=== PATIENT | male | born 1990 | race Hispanic/Latino ===

== ENCOUNTER 2018-02-26 09:53 | Emergency (ER) | payer SELFPAY ==
[2018-02-26] MEDS ORDERED: METHOCARBAMOL 500 MG TAB ONE (10:33)
[2018-02-26] MEDS ORDERED: predniSONE 20 MG TAB ONE (10:33)
[2018-02-26] MEDS ORDERED: KETOROLAC 30 MG/ML INJ ONE (10:34)
--- NOTE | 2018-02-26 11:19 | RAD REPORT ---
EXAM DESCRIPTION: RAD - Shoulder Right 2 View - 02/26/2018 11:13 am CLINICAL HISTORY: PAIN COMPARISON: CHEST PA AND LAT 2 VIEW dated 05/04/2007 FINDINGS: No acute fracture or dislocation is seen. No aggressive marrow lesion. IMPRESSION: No acute process seen.
--- NOTE | 2018-02-26 12:00 | ER ---
Nurse's Notes [facility] Name: Silvino Easton Jr Age: 28 yrs Sex: Male : 1990 Arrival Date: 02/26/2018 Time: 09:57 Bed 20 Private MD: None, None Diagnosis: Right shoulder pain, right AC joint pain, right rhomboid muscle pain Presentation: 02/26 10:05 Care prior to arrival: None. 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 Transition of care: patient was not received from another setting of care. Onset of symptoms was February 26, 2018. Risk Assessment: Do you want to hurt yourself or someone else? Patient reports no desire to harm self or others. Initial Sepsis Screen: Does the patient meet any 2 criteria? No. Patient's initial sepsis screen is negative. Does the patient have a suspected source of infection? No. Patient's initial sepsis screen is negative. 10:05 Method Of Arrival: Ambulatory sg 10:05 Acuity: GABBY 4 sg Historical: - Allergies: 10:05 No Known Allergies; sg - Home Meds: 10:16 None [Active]; iw - PMHx: 10:16 None; iw - PSHx: 10:05 None; sg - Immunization history:: Adult Immunizations not up to date. - Social history:: Smoking status: Patient/guardian denies using tobacco. - Ebola Screening: : Patient negative for fever greater than or equal to 101.5 degrees Fahrenheit, and additional compatible Ebola Virus Disease symptoms Patient denies exposure to infectious person Patient denies travel to an Ebola-affected area in the 21 days before illness onset No symptoms or risks identified at this time. Screenin:20 Abuse screen: Denies threats or abuse. Nutritional screening: No deficits noted. em Tuberculosis screening: No symptoms or risk factors identified. Fall Risk None identified. Assessment: 10:30 General: Appears in no apparent distress. comfortable, Behavior is calm, cooperative, em appropriate for age. Pain: Complains of pain in right arm and right trapezius Pain currently is 8 out of 10 on a pain scale. Neuro: Level of Consciousness is awake, alert, obeys commands, Oriented to person, place, time, situation. Cardiovascular: Capillary refill < 3 seconds Patient's skin is warm and dry. Respiratory: Airway is patent Respiratory effort is even, unlabored, Respiratory pattern is regular, symmetrical. GI: Abdomen is round non-distended, Abd is soft and non tender X 4 quads. : No signs and/or symptoms were reported regarding the genitourinary system. EENT: No signs and/or symptoms were reported regarding the EENT system. Derm: Skin is intact, is healthy with good turgor, Skin is pink, warm \T\ dry. Musculoskeletal: Capillary refill < 3 seconds, Range of motion: limited in right shoulder. 11:25 Reassessment: Patient appears in no apparent distress at this time. Patient and/or em family updated on plan of care and expected duration. Pain level reassessed. Patient is alert, oriented x 3, equal unlabored respirations, skin warm/dry/pink. Patient states feeling better. Patient states symptoms have improved. 12:00 Reassessment: i agree with above assessment by Sawyer Bhatti LVN. iw Vital Signs: 10:13 BP 107 / 90; Pulse 86; Resp 17 S; Pulse Ox 98% on R/A; sg 12:00 BP 113 / 78; Pulse 76; Resp 16; Pulse Ox 99% on R/A; Pain 6/10; em ED Course: 09:57 Patient arrived in ED. ag5 09:58 None, None is Private Physician. ag5 10:05 Arm band placed on. sg 10:09 Lamonte Miller MD is Attending Physician. kdr 10:13 Triage completed. sg 10:15 Sawyer Bhatti LVN is Primary Nurse. em 10:20 Patient has correct armband on for positive identification. Bed in low position. Call em light in reach. Adult w/ patient. 11:15 Shoulder Right (2 View) XRAY In Process Unspecified. EDMS 11:17 X-ray completed. Portable x-ray completed in exam room. Patient tolerated procedure ls3 well. 12:25 No provider procedures requiring assistance completed. Patient did not have IV access em during this emergency room visit. Administered Medications: 10:33 Drug: predniSONE 20 mg Route: PO; em 12:24 Follow up: Response: No adverse reaction; Pain is decreased em 10:33 Drug: TORadol 60 mg Route: IM; Site: right gluteus; em 12:24 Follow up: Response: No adverse reaction; Pain is decreased em 10:33 Drug: Robaxin 750 mg Route: PO; em 12:25 Follow up: Response: No adverse reaction; Pain is decreased em Outcome: 12:00 Discharge ordered by . kdr 12:25 Discharged to home ambulatory, with family. em 12:25 Condition: good 12:25 Discharge instructions given to patient, family, Instructed on discharge instructions, follow up and referral plans. medication usage, Demonstrated understanding of instructions, follow-up care, medications, Prescriptions given X 2. 12:26 Patient left the ED. em Signatures: Dispatcher [employer] EDTimothy Menchaca RN RN sg Rittger, Kevin, MD MD kdr Munoz, Edgar, RU[employer]LE PRESS TENDER [employer]LE [employer] TENDER em Soledad Leyva RN RN iw Siler, Lynzie 3 Wilda Villatoro 5
--- NOTE | 2018-02-26 12:00 | EDPHYS ---
Physician Documentation [facility] Name: Silvino Easton Jr Age: 28 yrs Sex: Male : 1990 Arrival Date: 02/26/2018 Time: 09:57 Bed 20 Private MD: None, None ED Physician Lamonte Miller HPI: 02/26 12:31 This 28 yrs old Male presents to ER via Ambulatory with complaints of Shoulder kdr Pain, Numbness Of Hand. 12:31 The patient or guardian complains of decreased range of motion, an injury, pain, that kdr is acute. right shoulder and right clavicle. Context: resulted from lifting or carrying, The patient experiences decreased range of motion, The patient reports no obvious deformity. Onset: The symptoms/episode began/occurred gradually, 1 week(s) ago. Modifying factors: the symptoms are alleviated by remaining still, The symptoms are aggravated by movement. Associated signs and symptoms: The patient has no apparent associated signs or symptoms. Severity of symptoms: At their worst the symptoms were mild, in the emergency department the symptoms are unchanged. Treatment prior to arrival includes: over the counter medications. The patient has not experienced similar symptoms in the past. Historical: - Allergies: 10:05 No Known Allergies; sg - Home Meds: 10:16 None [Active]; iw - PMHx: 10:16 None; iw - PSHx: 10:05 None; sg - Immunization history:: Adult Immunizations not up to date. - Social history:: Smoking status: Patient/guardian denies using tobacco. - Ebola Screening: : Patient negative for fever greater than or equal to 101.5 degrees Fahrenheit, and additional compatible Ebola Virus Disease symptoms Patient denies exposure to infectious person Patient denies travel to an Ebola-affected area in the 21 days before illness onset No symptoms or risks identified at this time. ROS: 12:31 Constitutional: Negative for fever, chills, and weight loss, Eyes: Negative for injury, kdr pain, redness, and discharge, Neck: Negative for injury, pain, and swelling, Cardiovascular: Negative for chest pain, palpitations, and edema, Respiratory: Negative for shortness of breath, cough, wheezing, and pleuritic chest pain, Abdomen/GI: Negative for abdominal pain, nausea, vomiting, diarrhea, and constipation, Skin: Negative for injury, rash, and discoloration, Neuro: Negative for headache, weakness, numbness, tingling, and seizure activity. Psych: Negative for depression, anxiety, suicide ideation, homicidal ideation, and hallucinations, Allergy/Immunology: Negative for hives, rash, and allergies, Endocrine: Negative for neck swelling, polydipsia, polyuria, polyphagia, and marked weight changes, Hematologic/Lymphatic: Negative for swollen nodes, abnormal bleeding, and unusual bruising. 12:31 MS/extremity: Positive for injury or acute deformity, decreased range of motion, pain, tenderness, of the right trapezius, right scapular area and anterior aspect of right shoulder. Exam: 12:31 Constitutional: This is a well developed, well nourished patient who is awake, alert, kdr and in no acute distress. Head/Face: Normocephalic, atraumatic. Eyes: Pupils equal round and reactive to light, extra-ocular motions intact. Lids and lashes normal. Conjunctiva and sclera are non-icteric and not injected. Cornea within normal limits. Periorbital areas with no swelling, redness, or edema. Neck: Trachea midline, no thyromegaly or masses palpated, and no cervical lymphadenopathy. Supple, full range of motion without nuchal rigidity, or vertebral point tenderness. No Meningismus. Chest/axilla: Normal chest wall appearance and motion. Nontender with no deformity. No lesions are appreciated. Cardiovascular: Regular rate and rhythm with a normal S1 and S2. No gallops, murmurs, or rubs. Normal PMI, no JVD. No pulse deficits. 12:31 Back: pain, that is mild, of the right trapezius and right scapular area, normal spinal alignment noted. Vital Signs: 10:13 BP 107 / 90; Pulse 86; Resp 17 S; Pulse Ox 98% on R/A; sg 12:00 BP 113 / 78; Pulse 76; Resp 16; Pulse Ox 99% on R/A; Pain 6/10; em MDM: 12:00 Patient medically screened. kdr 12:31 Data reviewed: vital signs, nurses notes, radiologic studies. Counseling: I had a kdr detailed discussion with the patient and/or guardian regarding: the historical points, exam findings, and any diagnostic results supporting the discharge/admit diagnosis, radiology results, the need for outpatient follow up. 02/26 10:23 Order name: Shoulder Right (2 View) XRAY; Complete Time: 11:57 kdr Administered Medications: 10:33 Drug: predniSONE 20 mg Route: PO; em 12:24 Follow up: Response: No adverse reaction; Pain is decreased em 10:33 Drug: TORadol 60 mg Route: IM; Site: right gluteus; em 12:24 Follow up: Response: No adverse reaction; Pain is decreased em 10:33 Drug: Robaxin 750 mg Route: PO; em 12:25 Follow up: Response: No adverse reaction; Pain is decreased em Disposition: 02/26/18 12:00 Discharged to Home. Impression: Right shoulder pain, right AC joint pain, right rhomboid muscle pain. - Condition is Stable. - Discharge Instructions: Musculoskeletal Pain, Shoulder Pain, [id number], Shoulder Sprain. - Prescriptions for Robaxin 500 mg Oral Tablet - take 2 tablets by ORAL route every 6 hours As needed; 20 tablet. Tramadol 50 mg Oral Tablet - take 1 tablet by ORAL route every 8 hours as needed; 12 tablet. - Medication Reconciliation Form, Thank You Letter, Antibiotic Education, Prescription Opioid Use, Work release form form. - Follow up: Private Physician; When: 2 - 3 days; Reason: If symptoms return, Further diagnostic work-up, Recheck today's complaints, Continuance of care, Re-evaluation by your physician. - Problem is new. - Symptoms have improved. Signatures: Dispatcher [employer] EDTimothy Menchaca RN RN sg Lamonte Miller MD MD [facility] Sawyer Bhatti, COMMUNITY ASSOCIATION MANAGER COMMUNITY ASSOCIATION MANAGER em Soledad Leyva RN RN iw Corrections: (The following items were deleted from the chart) 12:26 12:00 02/26/2018 12:00 Discharged to Home. Impression: Right shoulder pain, right AC em joint pain, right rhomboid muscle pain. Condition is Stable. Forms are Medication Reconciliation Form, Thank You Letter, Antibiotic Education, Prescription Opioid Use. Follow up: Private Physician; When: 2 - 3 days; Reason: If symptoms return, Further diagnostic work-up, Recheck today's complaints, Continuance of care, Re-evaluation by your physician. Problem is new. Symptoms have improved. kdr
== END 2018-02-26 12:26 | disposition home or self-care (01) ==
LOC: ER 09:53
DX: M79.18 Myalgia, other site (principal)
CPT/HCPCS: 96372; 99283; J7512

== ENCOUNTER 2020-09-25 10:55 | Emergency (ER) | payer SELFPAY ==
--- NOTE | 2020-09-25 11:41 | RAD REPORT ---
EXAM DESCRIPTION: RAD - Forearm Right - 09/25/2020 11:36 am CLINICAL HISTORY: Laceration COMPARISON: None. FINDINGS: No fracture is identified. There is no dislocation or periosteal reaction noted. No foreign body or other soft tissue abnormality. IMPRESSION: Negative right forearm examination.
[2020-09-25] MEDS ORDERED: LIDOCAINE 1% W/EPI 1:100,000 MDV 20 ML VIAL ONE (11:49)
[2020-09-25] MEDS ORDERED: BUPIVACAINE 0.5% PF 10 ML VIAL ONE (11:49)
[2020-09-25] MEDS ORDERED: TETANUS & DIPHTHERIA TOX,ADULT 0.5 ML VIAL ONE (11:50)
--- NOTE | 2020-09-25 12:59 | ER ---
Nurse's Notes [facility] Name: Silvino Easton Jr Age: 30 yrs Sex: Male : 1990 Arrival Date: 09/25/2020 Time: 11:06 Bed 16 Private MD: Diagnosis: Laceration without foreign body of right forearm Presentation: 09/25 11:09 Chief complaint: Pt brought to ED by PD, officer states that it is believed that pt ph injured arm while attempting to jump a fence. Pt admits to taking Xanax and states he "is barred out." Laceration noted to L forearm. Coronavirus screen: Client denies travel out of the [place] in the last 14 days. At this time, the client does not indicate any symptoms associated with coronavirus-19. Ebola Screen: No symptoms or risks identified at this time. Initial Sepsis Screen: Does the patient meet any 2 criteria? No. Patient's initial sepsis screen is negative. Does the patient have a suspected source of infection? No. Patient's initial sepsis screen is negative. Risk Assessment: Do you want to hurt yourself or someone else? Patient reports no desire to harm self or others. Onset of symptoms was September 25, 2020. 11:09 Method Of Arrival: Law Enforcement: Nicole BROOKS 11:09 Acuity: GABBY 4 ph Historical: - Allergies: 11:12 No Known Allergies; ph - Home Meds: 11:12 None [Active]; ph - PMHx: 11:12 None; ph - Immunization history:: Client reports having NOT received the Covid vaccine. Last tetanus immunization: unknown. - Social history:: Smoking status: Patient reports the use of cigarette tobacco products, smokes one pack cigarettes per day. Patient uses Xanax. Screenin:12 Abuse screen: Denies threats or abuse. Denies injuries from another. Nutritional ph screening: No deficits noted. Tuberculosis screening: No symptoms or risk factors identified. Fall Risk None identified. Assessment: 11:57 General: Appears in no apparent distress. comfortable, Behavior is calm, cooperative, ph drowsy. Pain: Complains of pain in palmar aspect of right forearm. Neuro: Level of Consciousness is awake, obeys commands, lethargic, Oriented to person, place, situation. Cardiovascular: Capillary refill < 3 seconds in bilateral fingers Patient's skin is warm and dry. Respiratory: Airway is patent Respiratory effort is even, unlabored. GI: No signs and/or symptoms were reported involving the gastrointestinal system. Derm: Skin is healthy with good turgor, Skin is pink, warm \\T\\ dry. Musculoskeletal: Circulation, motion, and sensation intact. Range of motion: intact in all extremities. Injury Description: Laceration sustained to palmar aspect of right forearm is full thickness, 2.6 to 7.5 cm long, moderate bleeding noted at this time. 11:58 Reassessment: Original dressing loosened for provider assessment, pt now bleeding ph through, new pressure dressing applied, awaiting ERP for laceration repair. 12:18 Reassessment: Patient appears in no apparent distress at this time. Patient and/or ph family updated on plan of care and expected duration. Pain level reassessed. Pt awake but remains drowsy, ERP at bedside for laceration repair. Vital Signs: 11:09 Pulse 98; Resp 18; Temp 98.0; Pulse Ox 99% on R/A; ph 11:59 BP 114 / 78; ph 13:00 BP 122 / 78; Pulse 81; Resp 18; Temp 98.0; Pulse Ox 99% ; ph ED Course: 11:06 Patient arrived in ED. ph 11:07 Beau Roberts PA is PHCP. cp 11:07 Beau Oliveira MD is Attending Physician. cp 11:12 Triage completed. ph 11:12 Arm band placed on Patient placed in an exam room, on a stretcher. ph 11:13 Payal Bneavides, RN is Primary Nurse. ph 11:13 Patient has correct armband on for positive identification. Bed in low position. Call ph light in reach. Side rails up X 1. Pulse ox on. NIBP on. 11:36 XRAY Forearm RIGHT In Process Unspecified. EDMS 13:00 Assist provider with laceration repair on back of right arm that was between 7.6 to ph 12.5 cm using sutures. Set up tray. Performed by Beau DICKENS Dressed with 4X4s, Kerlix, Patient tolerated well. Patient did not have IV access during this emergency room visit. Administered Medications: 11:34 Drug: Tetanus-Diphtheria Toxoid Adult 0.5 ml {Parole Director: Lemon. Exp: jl7 06/07/2022. Lot #: [id number]. } Route: IM; Site: left deltoid; 12:45 Follow up: Response: No adverse reaction ph 12:15 Drug: Lidocaine-Epinephrine -1%: (1:100,000) 10 ml Volume: 20 ml; Route: Infiltration; ph 12:15 Drug: Marcaine (bupivacaine) (0.5 %) 10 ml Volume: 10 ml; Route: Infiltration; ph 13:30 Drug: KeFLEX (cephalexin) 500 mg Route: PO; ph 13:35 Follow up: Response: No adverse reaction; Medication administered at discharge. ph Outcome: 12:59 Discharge ordered by MD. cp 13:33 Patient left the ED. iw 13:33 Discharged to Law Enforcement ph 13:33 Condition: good 13:33 Discharge instructions given to patient, police, Instructed on discharge instructions, follow up and referral plans. medication usage, Demonstrated understanding of instructions, follow-up care, medications, Prescriptions given X 1. Signatures: Dispatcher [employer] EDSoledad Fierro RN RN Payal Benavides RN RN ph Beau Roberts PA PA cp Leal, Jahala, RN RN jl7
--- NOTE | 2020-09-25 13:00 | EDPHYS ---
Physician Documentation [facility] Name: Silvino Easton Jr Age: 30 yrs Sex: Male : 1990 Arrival Date: 09/25/2020 Time: 11:06 Bed 16 Private MD: ED Physician Beau Oliveira HPI: 09/25 11:20 This 30 yrs old Male presents to ER via Law Enforcement with complaints of cp Laceration To Arm. 11:20 The patient or guardian complains of a laceration, clean. The complaints affect the cp palmar aspect of right forearm. Context: resulted from sharp edge of fence. Onset: The symptoms/episode began/occurred this morning. Treatment prior to arrival includes: applying pressure to the affected area. Associated signs and symptoms: Pertinent negatives: numbness. Historical: - Allergies: 11:12 No Known Allergies; ph - Home Meds: 11:12 None [Active]; ph - PMHx: 11:12 None; ph - Immunization history:: Client reports having NOT received the Covid vaccine. Last tetanus immunization: unknown. - Social history:: Smoking status: Patient reports the use of cigarette tobacco products, smokes one pack cigarettes per day. Patient uses Xanax. ROS: 11:25 Skin: Positive for laceration(s), of the palmar aspect of right forearm. cp 11:25 Constitutional: Negative for fever. cp 11:25 Cardiovascular: Negative for chest pain. 11:25 Respiratory: Negative for cough, shortness of breath. 11:25 Neuro: Negative for numbness, tingling, weakness. 11:25 Psych: Negative for auditory hallucinations, visual hallucinations, suicide gesture, suicidal ideation. 11:25 All other systems are negative. Exam: 11:30 Constitutional: The patient appears in no acute distress, alert, awake, non-toxic, well cp developed, well nourished. 11:30 Head/Face: Normocephalic, atraumatic. cp 11:30 Cardiovascular: Rate: normal, Pulses: Pulses are 2+ in right radial artery. 11:30 Respiratory: the patient does not display signs of respiratory distress, Respirations: normal, no use of accessory muscles, no retractions. 11:30 Abdomen/GI: Exam negative for discomfort, distension, guarding, Inspection: abdomen appears normal. 11:30 Musculoskeletal/extremity: ROM: full active range of motion, in the right hand and right arm, the right hand and right arm Sensation intact. 11:30 Skin: injury, laceration(s), the wound is approximately 6 cm(s), of the palmar aspect of right forearm, that can be described as clean, no foreign body, linear, with mild bleeding. Vital Signs: 11:09 Pulse 98; Resp 18; Temp 98.0; Pulse Ox 99% on R/A; ph 11:59 BP 114 / 78; ph 13:00 BP 122 / 78; Pulse 81; Resp 18; Temp 98.0; Pulse Ox 99% ; ph Laceration: 12:55 Wound Repair of 6cm ( 2.4in ) subcutaneous laceration to palmar aspect of right cp forearm. Linear shaped.. Distal neuro/vascular/tendon intact. Anesthesia: Wound infiltrated with 10 mls of Lido/Marcaine. Wound prep: Moderate cleansing by me, Wound irrigation by me. Skin closed with 7 4-0 Prolene using interrupted sutures and sterile technique. Dressed with Bacitracin, 4x4's. Patient tolerated well. MDM: 11:09 Patient medically screened. leonardo 11:35 Differential diagnosis: open fracture, simple laceration, tendon injury. cp 12:59 Data reviewed: vital signs, nurses notes, radiologic studies, plain films. cp 12:59 Test interpretation: by ED physician or midlevel provider: plain radiologic studies. cp Counseling: I had a detailed discussion with the patient and/or guardian regarding: the historical points, exam findings, and any diagnostic results supporting the discharge/admit diagnosis, radiology results, to return to the emergency department if symptoms worsen or persist or if there are any questions or concerns that arise at home. Response to treatment: the patient's symptoms have markedly improved after treatment, and as a result, I will discharge patient. 09/25 11:11 Order name: XRAY Forearm RIGHT; Complete Time: 12:09 cp 09/25 12:09 Interpretation: Reviewed. cp 09/25 11:11 Order name: Dressing - Wound; Complete Time: 11:13 cp 09/25 11:11 Order name: Gloves, Sterile; Complete Time: 11:13 cp 09/25 11:11 Order name: Setup Suture Tray; Complete Time: 11:13 cp Administered Medications: 11:34 Drug: Tetanus-Diphtheria Toxoid Adult 0.5 ml {Data Entry Analyst: [employer]. Exp: jl7 06/07/2022. Lot #: [id number]. } Route: IM; Site: left deltoid; 12:45 Follow up: Response: No adverse reaction ph 12:15 Drug: Lidocaine-Epinephrine -1%: (1:100,000) 10 ml Volume: 20 ml; Route: Infiltration; ph 12:15 Drug: Marcaine (bupivacaine) (0.5 %) 10 ml Volume: 10 ml; Route: Infiltration; ph 13:30 Drug: KeFLEX (cephalexin) 500 mg Route: PO; ph 13:35 Follow up: Response: No adverse reaction; Medication administered at discharge. ph Disposition: 12:59 Chart complete. cp 09/26 09:32 Co-signature as Attending Physician, Beau Oliveira MD I agree with the assessment and leonardo plan of care. Disposition Summary: 09/25/20 12:59 Discharge Ordered Location: Home cp Problem: new cp Symptoms: have improved cp Condition: Stable cp Diagnosis - Laceration without foreign body of right forearm cp Followup: cp - With: Private Physician - When: 10 - 14 days - Reason: Staple/Suture removal Discharge Instructions: - Discharge Summary Sheet cp - Laceration Care, Adult cp Forms: - Medication Reconciliation Form cp - Thank You Letter cp - Antibiotic Education cp - Prescription Opioid Use cp Prescriptions: - Cephalexin 500 mg Oral Capsule - take 1 capsule by ORAL route every 8 hours for 10 days; 30 capsule; Refills: 0, cp Product Selection Permitted Signatures: Dispatcher [employer] Beau Taylor MD MD cha Hall, Patricia, RN RN Beau Mullins PA PA cp Leal, Jahala, RN RN jl7
[2020-09-25 13:42] VITALS: TEMP 98; O2SAT 99
[2020-09-25 13:44] VITALS: BP 114/78
[2020-09-25] MEDS ORDERED: CEPHALEXIN 250 MG CAP ONE (13:47)
== END 2020-09-25 13:33 | disposition home or self-care (01) ==
LOC: ER 10:55
PROC: 0JQG0ZZ Repair Right Lower Arm Subcutaneous Tissue and Fascia, Open Approach (ICD-10-PCS; principal; 2020-09-25)
DX: S51.811A Laceration without foreign body of right forearm, initial encounter (principal); W26.8XXA Contact with other sharp object(s), not elsewhere classified, initial encounter; Z23 Encounter for immunization; F17.210 Nicotine dependence, cigarettes, uncomplicated
CPT/HCPCS: 90471; 90714; 99284